=== PATIENT | male | born 1980 | race African-American/Black ===

== ENCOUNTER 2018-09-26 21:12 | Observation (INO) ==
[2018-09-26] MEDS ORDERED: ALBUTEROL/IPRATROPIUM 3 ML NEB RESP TX STA ×2 (21:38→22:57)
[2018-09-26] MEDS ORDERED: methylPREDNISolone SOD SUC 125 MG/2 ML VIAL IV STA (21:38)
[2018-09-26 22:18] LABS: Basophils # 0.1 10*3/uL (0.0-0.2); Basophils % 0.6 % (0.0-0.8); Eosinophils # 0.6 10*3/uL (0.0-0.87); Eosinophils % 5.9 % (0.00-10.9); Hematocrit 45.5 VOL% (42.0-52.0); Hemoglobin 15.1 GM/DL (14.0-18.0); Immature Granulocytes % 0.5 %; Immature Granulocytes Absolute 0.05 #; Lymphocytes # 2.6 10*3/uL (1.4-4.0); Lymphocytes % 24.1 % (21.2-54.2); Mean Corpuscular HGB Conc 33.2 GM/DL (32-36); Mean Corpuscular Volume 99.3 FL (87-102); Mean Platelet Volume 9.8 FL (9.6-12.0); Monocytes % 7.2 % (1.7-12.7); Neutrophils % 61.7 % (38.7-73.9); Platelet Count 289 T/CUMM (130-400); Red Blood Count 4.58 MC/CUMM (3.8-5.5); Red Cell Distribution Width 12.5 % (9.3-17.3); White Blood Count 10.7 T/CUMM (4-12)
[2018-09-26 22:31] LABS: Albumin 3.8 G/DL (3.4-5.0); Bilirubin,Total 0.5 MG/DL (0.2-1.0); Calcium 8.7 MG/DL (8.5-10.1); Osmolality,Calculated 273.5 MOS/KG (273-304); Total Protein 6.8 G/DL (6.4-8.3)
[2018-09-26] MEDS ORDERED: ONDANSETRON 4 MG/2 ML VIAL IV PRN (22:46)
[2018-09-26] MEDS ORDERED: ACETAMINOPHEN 325 MG TABLET PO PRN (22:46)
[2018-09-26] MEDS ORDERED: DOCUSATE SODIUM 100 MG CAPSULE PO PRN (22:46)
[2018-09-26] MEDS ORDERED: NICOTINE 21 MG/24 HR PATCH TRANSDERM PRN (22:46)
[2018-09-26] MEDS: ALBUTEROL/IPRATROPIUM 3 ML NEB RESP TX SCH (23:20)
[2018-09-27] MEDS: SODIUM CHLORIDE 0.9% 1,000 ML IV SCH ×3 (00:51→21:29)
[2018-09-27] MEDS: AZITHROMYCIN 250 MG TABLET PO SCH ×2 (00:51→08:44)
[2018-09-27] MEDS ORDERED: PNEUMOCOCCAL VACCINE (23 VALENT) 0.5 ML VIAL IM ONE (01:01)
[2018-09-27] MEDS: BUDESONIDE/FORMOTEROL 160-4.5 INHALER 6 GM INH SCH ×3 (02:20→21:28)
[2018-09-27] MEDS: ALBUTEROL/IPRATROPIUM 3 ML NEB RESP TX SCH ×6 (03:05→23:13)
[2018-09-27 04:34] LABS: Basophils % 0.2 % (0.0-0.8); Hemoglobin 15.2 GM/DL (14.0-18.0); Immature Granulocytes % 0.4 %; Immature Granulocytes Absolute 0.04 #; Lymphocytes # 0.7 10*3/uL (1.4-4.0); Lymphocytes % 7.5 % (21.2-54.2); Mean Corpuscular Volume 100.2 FL (87-102); Mean Platelet Volume 9.4 FL (9.6-12.0); Monocytes % 0.8 % (1.7-12.7); Neutrophils % 91.1 % (38.7-73.9); Platelet Count 272 T/CUMM (130-400); Red Blood Count 4.59 MC/CUMM (3.8-5.5); Red Cell Distribution Width 12.5 % (9.3-17.3); White Blood Count 9.6 T/CUMM (4-12)
[2018-09-27 05:04] LABS: Calcium 9.2 MG/DL (8.5-10.1); Osmolality,Calculated 274.8 MOS/KG (273-304)
[2018-09-27 05:22] LABS: Lymphocytes 7 % (20-55); Segmented Neutrophils 93 % (50-85); Total Cells Counted 100
[2018-09-27 05:23] LABS: Anisocytosis Slight
[2018-09-27 05:24] LABS: Macrocytosis Slight; Platelet Estimate Normal; Polychromasia Slight
[2018-09-27] MEDS: methylPREDNISolone SOD SUC 40 MG/1 ML VIAL IV SCH ×2 (08:44→17:24)
[2018-09-27] MEDS: PANTOPRAZOLE 40 MG TABLET PO SCH (08:44)
[2018-09-27] MEDS: MONTELUKAST 10 MG TABLET PO SCH (08:44)
[2018-09-27] MEDS ORDERED: ALBUTEROL/IPRATROPIUM 3 ML NEB RESP TX PRN (17:12)
[2018-09-28] MEDS: methylPREDNISolone SOD SUC 40 MG/1 ML VIAL IV SCH ×2 (01:39→08:31)
[2018-09-28] MEDS: ALBUTEROL/IPRATROPIUM 3 ML NEB RESP TX SCH ×3 (04:34→11:49)
[2018-09-28] MEDS: SODIUM CHLORIDE 0.9% 1,000 ML IV SCH (07:38)
[2018-09-28] MEDS: MONTELUKAST 10 MG TABLET PO SCH (08:30)
[2018-09-28] MEDS: PANTOPRAZOLE 40 MG TABLET PO SCH (08:30)
[2018-09-28] MEDS: AZITHROMYCIN 250 MG TABLET PO SCH (08:31)
[2018-09-28] MEDS: BUDESONIDE/FORMOTEROL 160-4.5 INHALER 6 GM INH SCH (08:33)
[2018-09-28 12:32] VITALS: BP 123/65
== END 2018-09-28 13:18 | disposition home or self-care (01) ==
LOC: EDUNIT# → EDBD → N.EDINP 21:12 → N.ED 21:12 → N.TELES 23:09
PROVIDERS: ADMIT Internal Medicine; ATTEND Internal Medicine

== ENCOUNTER 2022-01-25 13:01 | Inpatient (IN) ==
[2022-01-25] MEDS ORDERED: methylPREDNISolone SOD SUC 125 MG/2 ML VIAL IV STA (14:10)
[2022-01-25] MEDS ORDERED: ALBUTEROL/IPRATROPIUM 3 ML NEB RESP TX STA (14:10)
[2022-01-25] MEDS ORDERED: EPINEPHrine 1 MG/ML VIAL ONE (14:18)
[2022-01-25] MEDS ORDERED: MAGNESIUM SULF RIDER 4 GM/100 ML PREMIX IV STA (14:25)
[2022-01-25] MEDS ORDERED: ALBUTEROL NEB SOLN 5 MG/ML 20 ML/BOTTLE CONT NEB STA (14:26)
[2022-01-25 14:38] LABS: Basophils # 0.1 10*3/uL (0.0-0.2); Basophils % 1.1 % (0.0-0.8); Eosinophils # 1.3 10*3/uL (0.0-0.87); Eosinophils % 11.9 % (0.00-10.9); Hemoglobin 17.1 GM/DL (14.0-18.0); Immature Granulocytes % 0.1 %; Immature Granulocytes Absolute 0.01 #; Lymphocytes # 5.7 10*3/uL (1.4-4.0); Lymphocytes % 51.9 % (21.2-54.2); Mean Corpuscular HGB Conc 33.5 GM/DL (32-36); Mean Corpuscular Volume 100.4 FL (87-102); Mean Platelet Volume 9.1 FL (9.6-12.0); Monocytes % 9.5 % (1.7-12.7); Neutrophils % 25.5 % (38.7-73.9); Platelet Count 349 T/CUMM (130-400); Red Blood Count 5.08 MC/CUMM (3.8-5.5); Red Cell Distribution Width 12.4 % (9.3-17.3)
[2022-01-25] MEDS ORDERED: EPINEPHrine 1 MG/ML VIAL SUBCUT STA (14:44)
[2022-01-25 14:46] LABS: Arterial Base Excess iSTAT 1 MMOL/L (-2.5-2.5); Arterial Bicarbonate iSTAT 29.4 MMOL/L (20-26); Arterial O2 Saturation iSTAT 100 % (95-100); Arterial PCO2 iSTAT 60 MM HG (35-48); Arterial PO2 iSTAT 420 MM HG (80-95); Arterial Total CO2 iSTAT 31 MMO/L (23-27); Arterial pH iSTAT 7.295 (7.35-7.45)
[2022-01-25 14:59] LABS: Albumin 4.1 G/DL (3.4-5.0); Bilirubin,Total 0.9 MG/DL (0.20-1.00); Calcium 9.2 MG/DL (8.5-10.1); Osmolality,Calculated 280.3 MOS/KG (273-304); Potassium 4.9 MMOL/L (3.5-5.1); Total Protein 8.1 G/DL (6.4-8.2)
[2022-01-25] MEDS ORDERED: MAGNESIUM SULF RIDER 2 GM/50 ML PREMIX IV STA (15:02)
[2022-01-25 15:08] LABS: Atypical Lymphocytes Few; Eosinophils 10 % (0-10); Lymphocytes 59 % (20-55); Platelet Estimate Adequate; Total Cells Counted 100
[2022-01-25] MEDS ORDERED: ALBUTEROL 2.5 MG/3 ML NEB RESP TX PRN (15:24)
[2022-01-25] MEDS ORDERED: ACETAMINOPHEN 325 MG TABLET PO PRN (15:24)
[2022-01-25] MEDS ORDERED: NICOTINE 21 MG/24 HR PATCH TRANSDERM PRN (15:24)
[2022-01-25] MEDS ORDERED: ONDANSETRON 4 MG/2 ML VIAL IV PRN (15:24)
[2022-01-25] MEDS ORDERED: MAGNESIUM SULF RIDER 2 GM/50 ML PREMIX IV ONE (15:30)
[2022-01-25 16:57] VITALS: BP 119/62
[2022-01-25] MEDS: ENOXAPARIN 40 MG/0.4 ML SYRINGE SUBCUT SCH (17:01)
[2022-01-25] MEDS: SODIUM CHLORIDE 0.9% 1,000 ML IV SCH (17:01)
[2022-01-25 17:17] LABS: Arterial Base Excess iSTAT 1 MMOL/L (-2.5-2.5); Arterial Bicarbonate iSTAT 26.8 MMOL/L (20-26); Arterial O2 Saturation iSTAT 99 % (95-100); Arterial PCO2 iSTAT 47 MM HG (35-48); Arterial PO2 iSTAT 138 MM HG (80-95); Arterial Total CO2 iSTAT 28 MMO/L (23-27)
[2022-01-25] MEDS: ALBUTEROL/IPRATROPIUM 3 ML NEB RESP TX SCH (19:20)
[2022-01-25] MEDS: methylPREDNISolone SOD SUC 125 MG/2 ML VIAL IV SCH (20:56)
[2022-01-25] MEDS: MONTELUKAST 10 MG TABLET PO SCH (20:56)
[2022-01-25] MEDS: BUDESONIDE/FORMOTEROL 160-4.5 INHALER 6 GM INH SCH (20:56)
[2022-01-26] MEDS: ALBUTEROL/IPRATROPIUM 3 ML NEB RESP TX SCH ×4 (00:43→19:00)
[2022-01-26] MEDS: SODIUM CHLORIDE 0.9% 1,000 ML IV SCH ×3 (02:56→23:46)
[2022-01-26 03:00] LABS: Basophils % 0.1 % (0.0-0.8); Hematocrit 46.7 VOL% (42.0-52.0); Hemoglobin 15.6 GM/DL (14.0-18.0); Immature Granulocytes % 0.6 %; Immature Granulocytes Absolute 0.05 #; Lymphocytes % 12.6 % (21.2-54.2); Mean Corpuscular HGB Conc 33.4 GM/DL (32-36); Mean Corpuscular Volume 99.2 FL (87-102); Mean Platelet Volume 9.2 FL (9.6-12.0); Monocytes # 0.1 10*3/uL (0.11-0.8); Monocytes % 1.7 % (1.7-12.7); Platelet Count 308 T/CUMM (130-400); Red Blood Count 4.71 MC/CUMM (3.8-5.5); Red Cell Distribution Width 12.2 % (9.3-17.3); White Blood Count 8.3 T/CUMM (4-12)
[2022-01-26 03:15] LABS: Calcium 8.4 MG/DL (8.5-10.1); Osmolality,Calculated 275.7 MOS/KG (273-304); Potassium 4.3 MMOL/L (3.5-5.1)
[2022-01-26 03:18] LABS: Arterial Base Excess iSTAT -1 MMOL/L (-2.5-2.5); Arterial Bicarbonate iSTAT 24.3 MMOL/L (20-26); Arterial O2 Saturation iSTAT 97 % (95-100); Arterial PCO2 iSTAT 41 MM HG (35-48); Arterial PO2 iSTAT 90 MM HG (80-95); Arterial Total CO2 iSTAT 25 MMO/L (23-27); Arterial pH iSTAT 7.383 (7.35-7.45)
[2022-01-26] MEDS: methylPREDNISolone SOD SUC 125 MG/2 ML VIAL IV SCH (04:14)
[2022-01-26] MEDS: BUDESONIDE/FORMOTEROL 160-4.5 INHALER 6 GM INH SCH ×2 (08:45→20:17)
[2022-01-26] MEDS: methylPREDNISolone SOD SUC 40 MG/1 ML VIAL IV SCH ×2 (13:00→20:18)
[2022-01-26] MEDS: ENOXAPARIN 40 MG/0.4 ML SYRINGE SUBCUT SCH (18:51)
[2022-01-26] MEDS: MONTELUKAST 10 MG TABLET PO SCH (20:17)
[2022-01-26] MEDS ORDERED: ENOXAPARIN 40 MG/0.4 ML SYRINGE SUBCUT SCH (21:00)
[2022-01-27] MEDS: ALBUTEROL/IPRATROPIUM 3 ML NEB RESP TX SCH ×2 (00:04→07:20)
[2022-01-27] MEDS: methylPREDNISolone SOD SUC 40 MG/1 ML VIAL IV SCH (04:11)
[2022-01-27] MEDS: BUDESONIDE/FORMOTEROL 160-4.5 INHALER 6 GM INH SCH (09:00)
== END 2022-01-27 09:43 | disposition home or self-care (01) | DRG 190 ==
LOC: N.ED 13:01 → N.EDINP 15:24 → SUATTDRO 15:24 → N.CC 16:35
PROVIDERS: ADMIT Internal Medicine; ATTEND Family Medicine

== ENCOUNTER 2022-03-01 03:52 | Observation (INO) ==
[2022-03-01] MEDS ORDERED: ALBUTEROL/IPRATROPIUM 3 ML NEB RESP TX STA ×2 (04:07→04:52)
[2022-03-01] MEDS ORDERED: methylPREDNISolone SOD SUC 125 MG/2 ML VIAL IV STA (04:07)
[2022-03-01 04:27] LABS: Basophils % 0.5 % (0.0-0.8); Eosinophils % 0.5 % (0.00-10.9); Hematocrit 43.8 VOL% (42.0-52.0); Hemoglobin 14.9 GM/DL (14.0-18.0); Immature Granulocytes % 0.3 %; Immature Granulocytes Absolute 0.02 #; Lymphocytes # 1.4 10*3/uL (1.4-4.0); Lymphocytes % 23.6 % (21.2-54.2); Mean Corpuscular Volume 96.5 FL (87-102); Mean Platelet Volume 9.5 FL (9.6-12.0); Monocytes # 0.5 10*3/uL (0.11-0.8); Monocytes % 8.8 % (1.7-12.7); Neutrophils % 66.3 % (38.7-73.9); Platelet Count 193 T/CUMM (130-400); Red Blood Count 4.54 MC/CUMM (3.8-5.5); Red Cell Distribution Width 12.7 % (9.3-17.3); White Blood Count 5.8 T/CUMM (4-12)
[2022-03-01 04:47] LABS: Albumin 3.8 G/DL (3.4-5.0); Bilirubin,Total 0.6 MG/DL (0.20-1.00); Calcium 8.9 MG/DL (8.5-10.1); Osmolality,Calculated 265.4 MOS/KG (273-304); Potassium 3.3 MMOL/L (3.5-5.1); Total Protein 7.1 G/DL (6.4-8.2)
[2022-03-01] MEDS ORDERED: POTASSIUM CHLORIDE 20 MEQ TABLET PO STA (04:50)
[2022-03-01] MEDS ORDERED: ACETAMINOPHEN 325 MG TABLET PO PRN (06:12)
[2022-03-01] MEDS ORDERED: ONDANSETRON 4 MG/2 ML VIAL IV PRN (06:12)
[2022-03-01] MEDS ORDERED: ALBUTEROL 2.5 MG/3 ML NEB RESP TX PRN (06:12)
[2022-03-01] MEDS ORDERED: ALBUTEROL 2.5 MG/3 ML NEB RESP TX STA (06:15)
[2022-03-01] MEDS ORDERED: NICOTINE 21 MG/24 HR PATCH TRANSDERM PRN (06:28)
[2022-03-01] MEDS: PANTOPRAZOLE 40 MG TABLET PO SCH (09:15)
[2022-03-01] MEDS: methylPREDNISolone SOD SUC 125 MG/2 ML VIAL IV SCH ×3 (09:15→21:51)
[2022-03-01] MEDS: ARFORMOTEROL 15 MCG/2 ML NEB RESP TX SCH ×2 (10:13→18:52)
[2022-03-01] MEDS: BUDESONIDE 0.5 MG/2 ML NEB RESP TX SCH ×2 (10:14→19:48)
[2022-03-01] MEDS: ALBUTEROL/IPRATROPIUM 3 ML NEB RESP TX SCH ×2 (12:47→18:52)
[2022-03-01] MEDS ORDERED: ENOXAPARIN 40 MG/0.4 ML SYRINGE SUBCUT SCH (21:00)
[2022-03-02] MEDS: ALBUTEROL/IPRATROPIUM 3 ML NEB RESP TX SCH ×2 (00:04→07:15)
[2022-03-02] MEDS: methylPREDNISolone SOD SUC 125 MG/2 ML VIAL IV SCH ×2 (03:09→09:13)
[2022-03-02 04:43] LABS: Calcium 9.5 MG/DL (8.5-10.1); Osmolality,Calculated 268.2 MOS/KG (273-304); Potassium 4.4 MMOL/L (3.5-5.1)
[2022-03-02] MEDS: ARFORMOTEROL 15 MCG/2 ML NEB RESP TX SCH (07:15)
[2022-03-02 07:41] VITALS: BP 136/82
[2022-03-02] MEDS: PANTOPRAZOLE 40 MG TABLET PO SCH (09:12)
[2022-03-02] MEDS ORDERED: BUDESONIDE/FORMOTEROL 160-4.5 INHALER 6 GM INH SCH (09:30)
== END 2022-03-02 11:11 | disposition home or self-care (01) ==
LOC: EDUNIT# → EDBD → N.ED 03:52 → N.EDINP 03:52
PROVIDERS: ADMIT Internal Medicine; ATTEND Internal Medicine